=== PATIENT | female | born 1990 | race Caucasian/White ===

== ENCOUNTER 2022-10-25 03:52 | Emergency (ER) | payer MEDICAID ==
[~2022-10-25] VITALS: Ht 170.2 cm; Wt 82.0 kg
[2022-10-25] MEDS ORDERED: ACETAMINOPHEN 325MG TABLET PO STA (05:11)
[2022-10-25] MEDS ORDERED: TETANUS, DIPHTHERIA, PERTUSSIS VAC/PF 0.5ML (>10YR OLD) IM ONE (05:15)
[2022-10-25] MEDS ORDERED: IBUP-2029 MT (08:57)
[2022-10-25] MEDS ORDERED: CEPH500C2 MT (08:57)
[2022-10-25 10:14] VITALS: BP 105/65
== END 2022-10-25 10:16 | disposition home or self-care (01) ==
LOC: ER 03:52
DX: S00.81XA Abrasion of other part of head, initial encounter (principal); Z88.0 Allergy status to penicillin; Y04.0XXA Assault by unarmed brawl or fight, initial encounter; Y93.89 Activity, other specified; Y92.89 Other specified places as the place of occurrence of the external cause; Y99.8 Other external cause status
CPT/HCPCS: 70450; 70486; 90471; 90715; 99285; Z7610